=== PATIENT | female | born 1985 | race Caucasian/White ===

== ENCOUNTER 2019-05-08 09:29 | Inpatient (IN) | payer OTHER ==
[2019-05-08 10:37] LABS: RUPTURE FETAL MEMBRANES POSITIVE (NEGATIVE)
[2019-05-08] MEDS ORDERED: OXYTOCIN 30 UNITS/LR 500 ML IV ×2 (11:30)
[2019-05-08] MEDS ORDERED: MISOPROSTOL 200 MCG TAB PR (11:30)
[2019-05-08] MEDS ORDERED: CARBOPROST 250 MCG INJ IM (11:30)
[2019-05-08] MEDS ORDERED: METHYLERGONOVINE 0.2 MG INJ IM (11:30)
[2019-05-08] MEDS ORDERED: LIDOCAINE 1% (MPF) 30 ML INJ INJ (11:30)
[2019-05-08] MEDS ORDERED: BUTORPHANOL 2 MG INJ IV (11:30)
[2019-05-08 12:10] LABS: ADD MAN DIFF? NO
[2019-05-08] MEDS: LACTATED RINGER'S 1,000 ML IV ×3 (12:18→22:47)
[2019-05-08 12:23] LABS: BASOPHILS % 0.3 % (0.0-2.0); EOSINOPHILS # 0.1 10^3/ul (0.0-0.5); EOSINOPHILS % 0.7 % (0.0-7.0); HEMATOCRIT 35.2 % (37.0-47.0); HEMOGLOBIN 11.7 g/dl (12.0-16.0); LYMPHOCYTES # 2.6 10^3/ul (0.8-2.9); LYMPHOCYTES % 18.1 % (15.0-51.0); MEAN CORPUSCULAR HEMOGLOBIN 29.2 pg (29.0-33.0); MEAN CORPUSCULAR HGB CONC 33.2 g/dl (32.0-37.0); MEAN CORPUSCULAR VOLUME 87.8 fl (82.0-101.0); MEAN PLATELET VOLUME 9.9 fl (7.4-10.4); MONOCYTE # 0.7 10^3/ul (0.3-0.9); MONOCYTES % 4.8 % (0.0-11.0); NEUTROPHIL # 10.6 10^3/ul (1.6-7.5); NEUTROPHILS % 75.3 % (39.0-77.0); PLATELET COUNT 409 10^3/UL (140-415); RED BLOOD COUNT 4.01 10^6/ul (4.20-5.40); RED CELL DISTRIBUTION WIDTH 13.9 % (11.5-14.5)
[2019-05-08 12:23] LABS: WHITE BLOOD COUNT 14.1 10^3/ul (4.8-10.8)
[2019-05-08 12:42] LABS: INR 0.87; PROTIME 11.9 Sec (11.9-14.9); PT RATIO 0.9
[2019-05-08 12:43] LABS: PARTIAL THROMBOPLASTIN TIME 27.7 Sec (23.0-35.0)
[2019-05-08 13:14] LABS: HEPATITIS B SURFACE ANTIGEN NEGATIVE (NEGATIVE)
[2019-05-08] MEDS: OXYTOCIN 30 UNITS/LR 500 ML IV (17:06)
[2019-05-08 20:13] LABS: RAPID PLASMA REAGIN NONREACTIVE (NR)
[2019-05-08] MEDS: BUTORPHANOL 2 MG INJ IV (20:23)
[2019-05-08] MEDS ORDERED: ONDANSETRON 4 MG INJ IV (23:30)
[2019-05-08] MEDS ORDERED: DIPHENHYDRAMINE 50 MG INJ IV (23:30)
[2019-05-08] MEDS ORDERED: NALOXONE (0.4 MG/ML) INJ IV (23:30)
[2019-05-09] MEDS: AMPICILLIN 2 GM/NS (PMX) 100 ML IV (01:22)
[2019-05-09] MEDS: LACTATED RINGER'S 1,000 ML IV ×2 (01:37→05:26)
[2019-05-09] MEDS: AMPICILLIN 1 GM/NS (PMX) 50 ML IV ×2 (05:26→09:29)
[2019-05-09] MEDS: FENTAnyl 2MCG/ML-ROPIV 0.2% 100 ML BAG EPI (05:29)
[2019-05-09] MEDS: OXYTOCIN 30 UNITS/LR 500 ML IV (10:56)
[2019-05-09] MEDS: MINERAL OIL LIGHT 10 ML VIAL TOP (10:57)
[2019-05-09] MEDS: IBUPROFEN 600 MG TAB PO ×2 (11:20→19:04)
[2019-05-09] MEDS ORDERED: MISOPROSTOL 200 MCG TAB PR (12:30)
[2019-05-09] MEDS ORDERED: METHYLERGONOVINE 0.2 MG INJ IM (12:30)
[2019-05-09] MEDS ORDERED: OXYCODONE/ASPIRIN (4.88/325) TAB PO ×2 (12:30)
[2019-05-09] MEDS ORDERED: ZOLPIDEM 5 MG TAB PO (12:30)
[2019-05-09] MEDS ORDERED: OXYTOCIN 30 UNITS/LR 500 ML IV (12:30)
[2019-05-09] MEDS ORDERED: CARBOPROST 250 MCG INJ IM (12:30)
[2019-05-09] MEDS: LANOLIN HPA 1 PKT TOP (14:01)
[2019-05-09] MEDS: BENZOCAINE 20% 56 ML SPRAY TOP (14:02)
[2019-05-09] MEDS: WITCH HAZEL/GLYCERIN PAD PR (14:02)
[2019-05-09] MEDS: SENNA/DOCUSATE NA (8.6MG/50MG) TAB PO (21:26)
[2019-05-10] MEDS: IBUPROFEN 600 MG TAB PO ×4 (00:04→18:16)
[2019-05-10 08:15] LABS: ADD MAN DIFF? NO
[2019-05-10 08:21] LABS: BASOPHILS % 0.3 % (0.0-2.0); EOSINOPHILS # 0.1 10^3/ul (0.0-0.5); EOSINOPHILS % 0.9 % (0.0-7.0); HEMATOCRIT 32.4 % (37.0-47.0); HEMOGLOBIN 10.7 g/dl (12.0-16.0); LYMPHOCYTES # 4.2 10^3/ul (0.8-2.9); LYMPHOCYTES % 28.3 % (15.0-51.0); MEAN CORPUSCULAR HEMOGLOBIN 29.1 pg (29.0-33.0); MEAN PLATELET VOLUME 10.2 fl (7.4-10.4); MONOCYTE # 0.9 10^3/ul (0.3-0.9); MONOCYTES % 5.8 % (0.0-11.0); NEUTROPHIL # 9.4 10^3/ul (1.6-7.5); PLATELET COUNT 388 10^3/UL (140-415); RED BLOOD COUNT 3.68 10^6/ul (4.20-5.40); RED CELL DISTRIBUTION WIDTH 14.5 % (11.5-14.5)
[2019-05-10 08:21] LABS: WHITE BLOOD COUNT 14.8 10^3/ul (4.8-10.8)
[2019-05-10] MEDS: LANOLIN HPA 1 PKT TOP (09:54)
[2019-05-10] MEDS: SENNA/DOCUSATE NA (8.6MG/50MG) TAB PO ×2 (09:54→21:46)
[2019-05-10] MEDS: FERROUS SULFATE (EC) 325 MG TAB PO (16:40)
[2019-05-11] MEDS: IBUPROFEN 600 MG TAB PO ×3 (05:34→11:37)
[2019-05-11] MEDS: SENNA/DOCUSATE NA (8.6MG/50MG) TAB PO (08:47)
[2019-05-11] MEDS: FERROUS SULFATE (EC) 325 MG TAB PO (08:47)
[2019-05-11] MEDS: DIPHTH/TET/ACEL PERTUSS (ADULT) 0.5 ML VIAL IM* (08:49)
[2019-05-11] MEDS ORDERED: FERROUS SULFATE (EC) 325 MG TAB PO (14:00)
== END 2019-05-11 14:25 | disposition home or self-care (01) | DRG 807 ==
LOC: OBT 09:29 → L-D 09:30 → OBT 11:35 → PP1 05-09 12:26 → L-D 11:36
PROVIDERS: Obstetrics & Gynecology
PROC: 10E0XZZ Delivery of Products of Conception, External Approach (ICD-10-PCS; principal; 2019-05-09)
PROC: 0KQM0ZZ Repair Perineum Muscle, Open Approach (ICD-10-PCS; 2019-05-09)
DX: O69.81X0 Labor and delivery complicated by cord around neck, without compression, not applicable or unspecified (principal); O70.1 Second degree perineal laceration during delivery; Z37.0 Single live birth; Z3A.38 38 weeks gestation of pregnancy
CPT/HCPCS: 62322; 76818; 84112; 85025; 85610; 85730; 86592; 86850; 86900; 86901; 87340; 90715